=== PATIENT | male | born 1970 | race Two or more races ===

== ENCOUNTER 2022-11-30 13:06 | Emergency (ER) | payer OTHER ==
[~2022-11-30] VITALS: Ht 177.8 cm; Wt 90.7 kg
[2022-11-30] MEDS ORDERED: METHADONE (13:30)
[2022-11-30 14:10] LABS: *BILIRUBIN,URIN NEGATIVE (NEGATIVE); *CLARITY,URINE CLEAR (CLEAR); *COLOR,URINE YELLOW (YELLOW); *KETONES,URINE NEGATIVE (NEGATIVE); *PROTEIN,URINE 1+ (NEGATIVE); LEUKOCYTE ESTERASE ,URINE NEGATIVE (NEGATIVE); NITRITE, URINE NEGATIVE (NEGATIVE); UGLUCOSE NEGATIVE (NEGATIVE)
[2022-11-30 14:12] LABS: *BLOOD, URINE TRACE (NEGATIVE)
[2022-11-30 14:34] LABS: RBC,URINE 0-3 /HPF (0-3); WBC,URINE NONE SEEN /HPF (0-3)
[2022-11-30] MEDS ORDERED: IV NORMAL SALINE 1000 ML BAG IV ONE (14:45)
[2022-11-30] MEDS ORDERED: METOCLOPRAMIDE HCL 10 MG/2 ML VIAL IV ONE (14:45)
[2022-11-30] MEDS ORDERED: KETOROLAC TROMETHAMINE 15 MG INJ IVP ONE (14:45)
[2022-11-30] MEDS ORDERED: KETOROLAC TROMETHAMINE 30 MG INJ ONE (14:51)
[2022-11-30] MEDS ORDERED: METOCLOPRAMIDE HCL 10 MG/2 ML VIAL ONE (14:52)
[2022-11-30] MEDS ORDERED: METOCLOPRAMIDE HCL 10 MG/2 ML VIAL IM ONE (15:00)
[2022-11-30] MEDS ORDERED: KETOROLAC TROMETHAMINE 30 MG INJ IM ONE (15:00)
[2022-11-30 16:24] LABS: CREATININE 1.1 mg/dL (0.6-1.3)
[2022-11-30 16:29] LABS: ALBUMIN 3.3 g/dL (3.4-5.0); BILIRUBIN,DIRECT 0.1 mg/dL (0.0-0.2); BILIRUBIN,TOTAL 0.3 mg/dL (0.2-1.0); TOTAL PROTEIN, SERUM 7.6 g/dL (6.4-8.2)
[2022-11-30] MEDS ORDERED: IBUP-1957 PO (16:39)
[2022-11-30 16:52] VITALS: BP 149/89; O2SAT 98
== END 2022-11-30 16:54 | disposition home or self-care (01) ==
LOC: ER 13:06
DX: N20.2 Calculus of kidney with calculus of ureter (principal); Z88.0 Allergy status to penicillin; Z79.1 Long term (current) use of non-steroidal anti-inflammatories (NSAID); Z79.899 Other long term (current) drug therapy
CPT/HCPCS: 99285; 74176; 80076; 80048; 81001; 83690; 36415; 93005; 96372 ×2; 87086; J1885; J2765; J7040; A4663

== ENCOUNTER 2023-06-12 09:29 | Emergency (ER) | payer OTHER ==
[~2023-06-12] VITALS: Ht 177.8 cm; Wt 90.7 kg
[~2023-06-12 09:29] MED LIST: IBUP-1957 PO; METHADONE
[2023-06-12] MEDS ORDERED: KETOROLAC TROMETHAMINE 15 MG INJ ONE (09:56)
[2023-06-12] MEDS: KETOROLAC TROMETHAMINE 15 MG INJ IM ONE (09:57)
[2023-06-12] MEDS ORDERED: CLIN300C12 PO (10:02)
[2023-06-12] MEDS ORDERED: IBUP-1955 PO (10:02)
[2023-06-12 10:08] VITALS: BP 145/93; O2SAT 98
== END 2023-06-12 10:08 | disposition home or self-care (01) ==
LOC: ER 09:29
DX: K02.9 Dental caries, unspecified (principal); K03.2 Erosion of teeth; Z79.899 Other long term (current) drug therapy; Z60.2 Problems related to living alone; Z88.0 Allergy status to penicillin
CPT/HCPCS: 99283; 96372; J1885; A4606; A4663

== ENCOUNTER 2023-07-29 05:40 | Emergency (ER) | payer OTHER ==
[~2023-07-29] VITALS: Ht 177.8 cm; Wt 93.0 kg
[~2023-07-29 05:40] MED LIST changes: +CLIN300C12 PO; +IBUP-1955 PO
[2023-07-29 07:59] LABS: *BILIRUBIN,URIN NEGATIVE (NEGATIVE); *CLARITY,URINE CLEAR (CLEAR); *COLOR,URINE YELLOW (YELLOW); *KETONES,URINE NEGATIVE (NEGATIVE); *PROTEIN,URINE 1+ (NEGATIVE); *UROBILINOGEN,URINE 0.2 E.U./dl (NORMAL); LEUKOCYTE ESTERASE ,URINE NEGATIVE (NEGATIVE); NITRITE, URINE NEGATIVE (NEGATIVE); PH,URINE 5.5 (5.0-8.0); UGLUCOSE NEGATIVE (NEGATIVE)
[2023-07-29 08:00] LABS: *BLOOD, URINE TRACE (NEGATIVE)
[2023-07-29 08:31] LABS: BACTERIA,URINE MODERATE /HPF (NONE SEEN); CALCIUM OXALATE CRYSTALS,UR FEW /HPF (NONE SEEN); MUCUS,URINE MODERATE /LPF (0-FEW); RBC,URINE 20-50 /HPF (0-3); SQUAMOUS EPITHELIAL CELL,UR FEW /HPF (NONE SEEN); WBC,URINE 20-50 /HPF (0-3)
[2023-07-29] MEDS ORDERED: CIPROFLOXACIN HCL 250 MG TABLET ONE (08:52)
[2023-07-29] MEDS ORDERED: CIPR-262 PO (08:55)
[2023-07-29 08:56] VITALS: BP 140/78; TEMP 98; O2SAT 99
[2023-07-29] MEDS: CIPROFLOXACIN HCL 250 MG TABLET PO ONE (08:56)
== END 2023-07-29 08:56 | disposition home or self-care (01) ==
LOC: ER 05:43
DX: N39.0 Urinary tract infection, site not specified (principal); F17.200 Nicotine dependence, unspecified, uncomplicated; Z79.899 Other long term (current) drug therapy; Z88.0 Allergy status to penicillin
CPT/HCPCS: A4606; A4663